=== PATIENT | male | born 1930 | race Two or more races ===

== ENCOUNTER → 2016-10-02 | Outpatient (CLI) | payer MEDICARE | LOC: RAD 07:47 | PROVIDERS: ATTEND Internal Medicine Gastroenterology | DX: R11.10 Vomiting, unspecified (principal) | CPT/HCPCS: 78264; A9541 ==

== ENCOUNTER 2019-01-08 11:13 | Observation (INO) | payer MEDICARE ==
[2019-01-08] MEDS ORDERED: ONDANSETRON HCL INJ/PF 4 MG/2 ML SDV IV ONE (11:26)
[2019-01-08] MEDS ORDERED: NORMAL SALINE 1000 ML 1,000 ML IV ONE (11:26)
--- NOTE | 2019-01-08 11:26 | ER Document Report ---
ED Medical Screen (RME) - General Chief Complaint: Abdominal Pain Stated Complaint: ABDOMINAL PAIN Time Seen by Provider: 01/08/19 11:24 Primary Care Provider: YULI SY MD [Primary Care Provider] - Follow up as needed Notes: 88-year-old male presented to ED for complaint of nausea vomiting and severe abdominal pain. states she has been vomiting all night. He states he has had no stool in at least 3 to 4 days. Patient is alert oriented respirations regular and unlabored he is throwing up in the emergency room I have greeted and performed a rapid initial assessment of this patient. A comprehensive ED assessment and evaluation of the patient, analysis of test results and completion of medical decision making process will be conducted by an additional ED providers. Dictation of this chart was performed using voice recognition software; therefore, there may be some unintended grammatical errors. TRAVEL OUTSIDE OF THE [place] IN LAST 30 DAYS: No - Related Data Allergies/Adverse Reactions: No Known Allergies Allergy (Verified 01/08/19 11:16) Physical Exam - Vital signs Vitals: Temp Pulse Resp BP Pulse Ox 97.6 F 95 16 174/89 H 97 01/08/19 11:19 01/08/19 11:19 01/08/19 11:19 01/08/19 11:19 01/08/19 11:19 Course - Vital Signs Vital signs: Temp Pulse Resp BP Pulse Ox 97.6 F 95 16 174/89 H 97 01/08/19 11:19 01/08/19 11:19 01/08/19 11:19 01/08/19 11:19 01/08/19 11:19 Doctor's Discharge - Discharge Referrals: YULI SY MD [Primary Care Provider] - Follow up as needed
[2019-01-08 12:11] LABS: ABSOLUTE LYMPHOCYTES (AUTO) 0.9 10^3/uL (0.5-4.7); ABSOLUTE MONOCYTES (AUTO) 0.5 10^3/uL (0.1-1.4); ABSOLUTE NEUT (AUTO) 4.7 10^3/uL (1.7-8.2); BASOPHILS % (AUTO) 0.5 % (0-2); EOSINOPHILS % (AUTO) 0.2 % (0-6); HEMATOCRIT 46.8 % (37.9-51.0); HEMOGLOBIN 15.4 g/dL (13.5-17.0); LYMPHOCYTES % (AUTO) 15.3 % (13-45); MEAN CORPUSCULAR HEMOGLOBIN 26.4 pg (27.0-33.4); MEAN CORPUSCULAR HGB CONC 32.8 g/dL (32.0-36.0); MEAN CORPUSCULAR VOLUME 81 fl (80-97); MONOCYTES % (AUTO) 7.7 % (3-13); PLATELET COUNT 201 10^3/uL (150-450); RED BLOOD COUNT 5.81 10^6/uL (4.35-5.55); RED CELL DISTRIBUTION WIDTH 14.4 % (11.5-14.0); SEGMENTED NEUTROPHILS % (AUTO) 76.3 % (42-78); TOTAL CELLS COUNTED % (AUTO) 100 %; WHITE BLOOD COUNT 6.1 10^3/uL (4.0-10.5)
[2019-01-08 12:18] LABS: ALANINE AMINOTRANSFERASE 21 U/L (21-72); ALBUMIN 4.4 g/dL (3.5-5.0); ALKALINE PHOSPHATASE 79 U/L (38-126); ANION GAP 12 (5-19); ASPARTATE AMINO TRANSFERASE 18 U/L (17-59); BILIRUBIN,DIRECT 0.4 mg/dL (0.0-0.4); BLOOD UREA NITROGEN 13 mg/dL (7-20); CALCIUM 9.8 mg/dL (8.4-10.2); CARBON DIOXIDE 30 mmol/L (22-30); CHLORIDE 103 mmol/L (98-107); GLUCOSE 117 mg/dL (75-110); LIPASE 33.6 U/L (23-300); POTASSIUM 4.4 mmol/L (3.6-5.0); SODIUM 144.5 mmol/L (137-145); TOTAL PROTEIN 7.7 g/dL (6.3-8.2)
--- NOTE | 2019-01-08 12:30 | RADIOLOGY REPORT (SQ) ---
EXAM DESCRIPTION: ACUTE ABDOMEN SERIES COMPLETED DATE/TIME: 01/08/2019 12:13 pm REASON FOR STUDY: Severe abdominal pain nausea vomiting no stool COMPARISON: None. NUMBER OF VIEWS: Three views. TECHNIQUE: Frontal chest, supine abdomen and uprightabdomen radiographic images acquired. LIMITATIONS: None. FINDINGS: CHEST: Normal heart size. The pulmonary vasculature is normal. Streaky densities at lung bases could represent discoid atelectasis. FREE AIR: No pneumoperitoneum. BOWEL GAS PATTERN: Nonspecific bowel-gas pattern with scattered gas throughout the colon to the rectu m. Scattered small bowel gas. CALCIFICATIONS: Cholelithiasis. HARDWARE: None in the abdomen. SOFT TISSUES: No gross mass or suggestion of organomegaly. BONES: Lumbar spondylosis. IMPRESSION: Bibasilar discoid atelectasis. Cholelithiasis. Nonspecific bowel-gas pattern. TECHNICAL DOCUMENTATION: JOB ID: [id number] [id number] 2010 [employer]- All Rights Reserved Reading location - IP/workstation name: [email or web address]
[2019-01-08] MEDS ORDERED: METOCLOPRAMIDE HCL INJ/PF 10 MG/2 ML SDV IV ONE (13:22)
[2019-01-08] MEDS ORDERED: DIPHENHYDRAMINE HCL 50 MG/ML VIAL IV ONE (13:22)
[2019-01-08] MEDS ORDERED: MORPHINE SULFATE 10 MG/ML INJ IV ONE ×2 (14:10→15:23)
--- NOTE | 2019-01-08 14:13 | ER Document Report ---
Addendum entered and electronically signed by TIARRA BANKS NP 01/08/19 20:35: Course - Re-evaluation Re-evalutation: 01/08/19 20:34 Patient with EKG which was read by Dr. Vega. States that it looks like some left ventricular hypertrophy with some nonspecific ST changes but no STEMI. States that his official read will be in the computer in about an hour and a half. - Vital Signs Vital signs: Temp Pulse Resp BP Pulse Ox 98.1 F 94 16 173/97 H 99 01/08/19 16:45 01/08/19 16:45 01/08/19 16:45 01/08/19 16:45 01/08/19 16:45 - Laboratory Result Diagrams: 01/08/19 11:46 01/08/19 11:46 Laboratory results interpreted by me: 01/08/19 01/08/19 01/08/19 11:46 11:46 13:40 RBC 5.81 H MCH 26.4 L RDW 14.4 H Est GFR (Non-Af Amer) 59 L Glucose 117 H Urine Blood SMALL H Urine Urobilinogen 2.0 H Original Note: ED GI/ - General Chief Complaint: Abdominal Pain Stated Complaint: ABDOMINAL PAIN Time Seen by Provider: 01/08/19 11:24 Primary Care Provider: YULI SY MD [NO LOCAL MD] - Follow up as needed Mode of Arrival: Ambulatory Information source: Patient TRAVEL OUTSIDE OF THE [place] IN LAST 30 DAYS: No - HPI Patient complains to provider of: Abdominal pain Notes: 01/08/19 14:11 Patient here with complaints of abdominal pain with nausea vomiting. Pain is been present for the last 3 days but got much worse last night. Pain is in the upper abdomen as well as his back. Nothing seems to make it better or worse. He has had nausea and vomiting with this as well. No diarrhea. He denies fever. He denies dysuria or hematuria. No chest pain or shortness of breath. No rash. Pain is constant, 4 out of 5, nothing makes it better or worse. No prior abdominal surgeries. No testicular pain or swelling. No penile discharge. No numbness, tingling, weakness. Patient denies any other specific complaints at this time. - Related Data Allergies/Adverse Reactions: No Known Allergies Allergy (Verified 01/08/19 11:16) Past Medical History - Social History Smoking Status: Former Smoker Chew tobacco use (# tins/day): No Frequency of alcohol use: None Drug Abuse: None Family History: Reviewed & Not Pertinent Patient has suicidal ideation: No Patient has homicidal ideation: No Renal/ Medical History: Denies: Hx Peritoneal Dialysis Review of Systems - Review of Systems -: Yes All other systems reviewed and negative Physical Exam - Vital signs Vitals: Temp Pulse Resp BP Pulse Ox 97.6 F 95 16 174/89 H 97 01/08/19 11:19 01/08/19 11:19 01/08/19 11:19 01/08/19 11:19 01/08/19 11:19 - Notes Notes: GENERAL: alert, cooperative, nontoxic, no distress. HEAD: normocephalic, atraumatic EYES: conjunctiva pink without discharge, no external redness or swelling. EARS: no external swelling, no external redness NOSE: atraumatic, no external swelling MOUTH/THROAT: mucous membranes moist and pink, posterior pharynx without erythema, swelling, exudate. No trismus or drooling. NECK: soft, supple, full range of motion, no meningismus. CHEST: no distress, lungs clear and equal throughout. No wheezing, rales, rhonchi. CARDIAC: regular rate and rhythm, no murmur, normal capillary refill, normal pulses. No peripheral edema noted. ABDOMEN: Soft, tenderness across the right upper and epigastric area as well as the mid abdomen. No pulsatile mass. No right lower quadrant or left lower quadrant tenderness to exam. No rebound tenderness or guarding. BACK: full range of motion, no CVA tenderness. EXTREMITIES: full range of motion of all extremities. No redness, no swelling. NEURO: alert and oriented x 3, no focal deficits, full range of motion of all extremities. PYSCH: appropriate mood, affect. Patient is cooperative. SKIN: pink, warm, dry, no rash. Course - Re-evaluation Re-evalutation: 01/08/19 15:44 Patient resting comfortably at this time. He was having some more pain and had some pain medication ordered and is feeling somewhat better at this time. Ultrasound shows multiple gallstones with a distended gallbladder as well as an infrarenal AAA. I have ordered a CTA of the abdomen and pelvis to rule out dissection. Patient is resting comfortably at this time. Have gone over this with the patient as well as his . We will continue to closely monitor. 01/08/19 17:54 Patient noted to have gallbladder wall thickening with multiple stones and a possible stone in the gallbladder neck. Noted to have 3.3 cm infrarenal abdomi nal aortic aneurysm with no dissection. I discussed the case with Dr. Soto, he will come to the emergency department to evaluate the patient. 01/08/19 19:43 Patient seen and evaluated by Dr. Hurtado. Patient will be admitted to the hospital for acute cholecystitis. Patient family are aware of this plan and agreeable. Patient is also noted to have an incidental infrarenal abdominal aortic aneurysm with no signs of dissection. Remainder of his labs are unremarkable. - Vital Signs Vital signs: Temp Pulse Resp BP Pulse Ox 98.1 F 94 16 173/97 H 99 01/08/19 16:45 01/08/19 16:45 01/08/19 16:45 01/08/19 16:45 01/08/19 16:45 - Laboratory Result Diagrams: 01/08/19 11:46 01/08/19 11:46 Laboratory results interpreted by me: 01/08/19 01/08/19 01/08/19 11:46 11:46 13:40 RBC 5.81 H MCH 26.4 L RDW 14.4 H Est GFR (Non-Af Amer) 59 L Glucose 117 H Urine Blood SMALL H Urine Urobilinogen 2.0 H - Diagnostic Test Radiology reviewed: Image reviewed, Reports reviewed - Acute abdominal series shows atelectasis in the bibasilar area with gallstones and a nonspecific bowel gas pattern. Discharge - Discharge Clinical Impression: AAA (abdominal aortic aneurysm) without rupture Cholelithiasis and cholecystitis without obstruction Qualifiers: Cholelithiasis location: gallbladder Cholecystitis acuity: acute Qualified Code(s): K80.00 - Calculus of gallbladder with acute cholecystitis without obstruction Condition: Stable Disposition: ADMITTED INPATIENT Admitting Provider: Surgicalist Unit Admitted: Surgical Floor Referrals: YULI SY MD [NO LOCAL MD] - Follow up as needed
[2019-01-08 15:12] LABS: APPEARANCE,URINE CLEAR; BILIRUBIN,URINE NEGATIVE (NEGATIVE); COLOR,URINE STRAW; GLUCOSE, URINE NEGATIVE (NEGATIVE); KETONES,URINE NEGATIVE (NEGATIVE); LEUKOCYTE ESTERASE,URINE NEGATIVE (NEGATIVE); NITRITE,URINE NEGATIVE (NEGATIVE); PROTEIN,URINE NEGATIVE (NEGATIVE); URINE SPECIFIC GRAVITY 1.009
--- NOTE | 2019-01-08 15:17 | RADIOLOGY REPORT (SQ) ---
EXAM DESCRIPTION: U/S ABDOMEN LIMITED W/O DOP COMPLETED DATE/TIME: 01/08/2019 2:57 pm REASON FOR STUDY: RUQ PAIN, ALSO R/O AAA COMPARISON: None. TECHNIQUE: Dynamic and static grayscale images acquired of the abdomen and recorded on PACS. Additio nal selected color Doppler and spectral images recorded. LIMITATIONS: None. FINDINGS: PANCREAS: Obscured. LIVER: No masses. Increased echogenicity. LIVER VASCULATURE: Normal directional flow of the main portal vein and hepatic veins. GALLBLADDER: Distended gallbladder measuring greater than 12 cm. Small mobile gallstones in the gall bladder. Normal wall thickness. No pericholecystic fluid. ULTRASOUND-DETECTED LOPEZ'S SIGN: Negative. INTRAHEPATIC DUCTS AND COMMON DUCT: CBD and intrahepatic ducts normal caliber. No filling defects. INFERIOR VENA CAVA: Normal flow. AORTA: Maximum caliber of the inferior abdominal aorta 3.3 x 2.3 cm. RIGHT KIDNEY: Normal size. Normal echogenicity. No solid or suspicious masses. No hydronephrosis. No calcifications. PERITONEAL AND RIGHT PLEURAL SPACE: No ascites or effusions. OTHER: No other significant findings. IMPRESSION: 1. Very distended gallbladder with small mobile gallstones. No gallbladder wall thicke fern. No pericholecystic fluid. No biliary ductal dilation. Negative sonographic Lopez's sign. H CRISTHIAN may be used to further evaluate for patency of the cystic duct if cholecystitis is suspected. 2. Aneurysm of the infrarenal abdominal aorta measuring 3.3 x 2.3 cm. 3. Hepatic steatosis. TECHNICAL DOCUMENTATION: JOB ID: [id number] [employer]- All Rights Reserved Reading location - IP/workstation name: [email or web address]
--- NOTE | 2019-01-08 17:34 | RADIOLOGY REPORT (SQ) ---
EXAM DESCRIPTION: CTA ABDOMEN/PELVIS W WO COMPLETED DATE/TIME: 01/08/2019 4:48 pm REASON FOR STUDY: AAA COMPARISON: None. TECHNIQUE: CT scan of the abdominal aorta extending to the iliac bifurcation performed with and with out intravenous contrast using helical scanning technique with dynamic intravenous contrast injection . Images reviewed with lung, soft tissue, and bone windows. Reconstructed coronal and sagittal MPR im ages reviewed. All images stored on PACS. Advanced 3D imaging as volume rendering, MIPS, SSD performed? yes All CT scanners at this facility use dose modulation, iterative reconstruction, and/or weight based d osing when appropriate to reduce radiation dose to as low as reasonably achievable (ALARA). [facility]: Dose Right [facility]: CareDose [facility]: Dose Right [facility]: Teradose 4D [facility]: Anzode CONTRAST TYPE AND DOSE: I Omnipaque 350. 99 mL. RENAL FUNCTION: Creatinine: 1.1 LIMITATIONS: None. FINDINGS: NON-CONTRASTED IMAGING: Nonobstructive calculus upper pole love right kidney. Nonobstruct dagmar calculi lower pole left kidney. . Cholelithiasis. Possible stone in gallbladder neck. POST-CONTRAST IMAGING: AORTA AND VESSELS: Aneurysmal dilatation distal abdominal aorta with mural thrombus measuring 3.3 cm in AP diameter by 3.3 cm in transverse diameter. No dissection. Renal arteries, SMA, celiac without stenosis. LUNG BASES: Dependent atelectasis in lung bases. LIVER: There are simple hepatic cysts of the liver noted. SPLEEN: Normal size. No focal lesions. PANCREAS: No abnormality seen. GALLBLADDER: Cholelithiasis. Findings suggestive a stone at the neck of gallbladder or cystic duct. The gallbladder is distended measuring 4 cm in transverse diameter x15.7 cm in length. Thickening of the gallbladder wall is noted measuring 1.1 cm in thickness. ADRENAL GLANDS: No abnormality seen. RIGHT KIDNEY AND URETER: There is evidence of multiple cortical cysts of the right kidney. LEFT KIDNEY AND URETER: Multiple cortical and parapelvic cysts of the left kidney. RETROPERITONEUM: Aneurysmal dilatation of the infrarenal abdominal aorta measuring 3.3 cm in AP diame terx 3 cm in transverse diameter. BOWEL AND PERITONEAL CAVITY: No masses or inflammatory changes. No free fluid or peritoneal masses. APPENDIX: Normal. ABDOMINAL WALL: No masses. No hernias. BONY STRUCTURES: Lumbar spondylosis. 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 3-D IMAGING: Confirms the above findings. OTHER: Changes consistent with previous hernia repair right lower abdomen. Ng. IMPRESSION: 1. Evidence of a markedly distended gallbladder with thickened wall. Cholelithiasis. Possible stone in gallbladder neck. 2. Evidence of aneurysmal dilatation of the infrarenal abdomina l aorta above its bifurcation measuring 3.3 cm in AP diameterx3 cm in transverse diameter with mural thrombus. Marked tortuosity of the abdominal aorta noted. TECHNICAL DOCUMENTATION: JOB ID: [id number] SC-69 Quality ID # [id number]: Final reports with documentation of one or more dose reduction techniques (e.g., Au tomated exposure control, adjustment of the mA and/or kV according to patient size, use of iterative reconstruction technique) 2010 [employer]- All Rights Reserved Reading location - IP/workstation name: [email or web address]
--- NOTE | 2019-01-08 19:55 | PDOC H&P ---
History of Present Illness Admission Date/PCP: KSENIA ANDERSON MD Patient complains of: abdominal pains History of Present Illness: VIC DE LA ROSA is a 88 year old male co RUQ pains since 7 pm last night asociated with nausea. No fever/chills/diarrhea/constipation.US shoud gallstones with acute cholecystitis. Past Surgical History Past Surgical History: Reports: Other - ypper palate surgery for Ca about 30 years ago Social History Smoking Status: Former Smoker Family History Family History: Reviewed & Not Pertinent Parental Family History Reviewed: Yes Children Family History Reviewed: No Sibling(s) Family History Reviewed.: No Medication/Allergy Allergies/Adverse Reactions: No Known Allergies Allergy (Verified 01/08/19 11:16) Review of Systems Constitutional: PRESENT: as per HPI Physical Exam Vital Signs: Temp Pulse Resp BP Pulse Ox 98.1 F 94 16 173/97 H 99 01/08/19 16:45 01/08/19 16:45 01/08/19 16:45 01/08/19 16:45 01/08/19 16:45 Intake & Output 01/07/19 01/08/19 01/09/19 06:59 06:59 06:59 Intake Total 1000 Balance 1000 Weight 73.8 kg General appearance: PRESENT: mild distress Head exam: PRESENT: atraumatic Eye exam: PRESENT: conjunctiva pink Neck exam: PRESENT: full ROM Cardiovascular exam: PRESENT: RRR Pulses: PRESENT: normal radial pulses Vascular exam: PRESENT: normal capillary refill GI/Abdominal exam: PRESENT: soft, tenderness - RUQ Rectal exam: PRESENT: deferred Extremities exam: PRESENT: full ROM Musculoskeletal exam: PRESENT: ambulatory Neurological exam: PRESENT: alert, oriented to person, oriented to place, oriented to time, oriented to situation Psychiatric exam: PRESENT: appropriate affect Skin exam: PRESENT: normal color, warm Results Laboratory Results: 01/08/19 11:46 01/08/19 11:46 01/08/19 01/08/19 01/08/19 11:46 11:46 13:40 WBC 6.1 RBC 5.81 H Hgb 15.4 Hct 46.8 MCV 81 MCH 26.4 L MCHC 32.8 RDW 14.4 H Plt Count 201 Seg Neutrophils % 76.3 Lymphocytes % 15.3 Monocytes % 7.7 Eosinophils % 0.2 Basophils % 0.5 Absolute Neutrophils 4.7 Absolute Lymphocytes 0.9 Absolute Monocytes 0.5 Absolute Eosinophils 0.0 Absolute Basophils 0.0 Sodium 144.5 Potassium 4.4 Chloride 103 Carbon Dioxide 30 Anion Gap 12 BUN 13 Creatinine 1.17 Est GFR ( Amer) > 60 Est GFR (Non-Af Amer) 59 L Glucose 117 H Calcium 9.8 Total Bilirubin 1.0 AST 18 ALT 21 Alkaline Phosphatase 79 Total Protein 7.7 Albumin 4.4 Lipase 33.6 Urine Color STRAW Urine Appearance CLEAR Urine pH 8.0 Ur Specific [place] 1.009 Urine Protein NEGATIVE Urine Glucose (UA) NEGATIVE Urine Ketones NEGATIVE Urine Blood SMALL H Urine Nitrite NEGATIVE Ur Leukocyte Esterase NEGATIVE Urine WBC (Auto) 0 Urine RBC (Auto) 5 Impressions: Acute Abdomen Series 01/08/19 11:24 IMPRESSION: Bibasilar discoid atelectasis. Cholelithiasis. Nonspecific bowel- gas pattern. Abdomen Ultrasound 01/08/19 14:09 IMPRESSION: 1. Very distended gallbladder with small mobile gallstones. No gallbladder wall thickening. No pericholecystic fluid. No biliary ductal dilation. Negative sonographic Lopez's sign. HIDA may be used to further evaluate for patency of the cystic duct if cholecystitis is suspected. 2. Aneurysm of the infrarenal abdominal aorta measuring 3.3 x 2.3 cm. 3. Hepatic steatosis. Abdomen/Pelvis CTA 01/08/19 15:38 IMPRESSION: 1. Evidence of a markedly distended gallbladder with thickened wall. Cholelithiasis. Possible stone in gallbladder neck. 2. Evidence of aneurysmal dilatation of the infrarenal abdominal aorta above its bifurcation measuring 3.3 cm in AP diameterx3 cm in transverse diameter with mural thrombus. Marked tortuosity of the abdominal aorta noted. Assessment & Plan - Diagnosis (1) AAA (abdominal aortic aneurysm) without rupture Is this a current diagnosis for this admission?: Yes (2) Cholelithiasis and cholecystitis without obstruction Qualifiers: Cholelithiasis location: gallbladder Cholecystitis acuity: acute Qualified Code(s): K80.00 - Calculus of gallbladder with acute cholecystitis without obstruction Is this a current diagnosis for this admission?: Yes - Time Time Spent: 30 to 50 Minutes - Inpatient Certification Medical Necessity: Need For IV Fluids, Need for Pain Control, Need for IV Antibiotics, Need for Surgery - Plan Summary Plan Summary: NPO IV antibiotics Medical clearance for OR For lap cholecystectomy in am
[2019-01-08] MEDS ORDERED: AMPICILLIN SOD/SULBACTAM 3 GM VIAL IV ONE (20:04)
[2019-01-08] MEDS: AMPICILLIN SOD/SULBACTAM 3 GM VIAL IV SCH (20:21)
[2019-01-08] MEDS: ONDANSETRON HCL INJ/PF 4 MG/2 ML SDV IV PRN (20:27)
[2019-01-08] MEDS: MORPHINE SULFATE 10 MG/ML INJ IV PRN (20:27)
--- NOTE | 2019-01-08 23:05 | EKG REPORT ---
SEVERITY:- ABNORMAL ECG - SINUS RHYTHM LEFT BUNDLE BRANCH BLOCK : Confirmed by: Yevgeniy Vega 08-Jan-2019 23:05:32
--- NOTE | 2019-01-08 23:06 | EKG REPORT ---
SEVERITY:- ABNORMAL ECG - SINUS RHYTHM PAIRED VENTRICULAR PREMATURE COMPLEXES NONSPECIFIC INTRAVENTRICULAR CONDUCTION DELAY LEFT VENTRICULAR HYPERTROPHY : Confirmed by: Yevgeniy Vega 08-Jan-2019 23:06:05
[2019-01-08 23:50] LABS: CREATINE KINASE MB 1.42 ng/mL (<4.55); TROPONIN I 0.054 ng/mL
[2019-01-08 23:50] LABS: CREATINE KINASE MB 1.92 ng/mL (<4.55); TROPONIN I 0.051 ng/mL
[2019-01-09] MEDS: AMLODIPINE BESYLATE 5 MG TABLET PO SCH ×2 (00:04→11:52)
[2019-01-09] MEDS: ENALAPRIL MALEATE 5 MG TABLET PO SCH ×2 (00:05→11:52)
[2019-01-09] MEDS ORDERED: AMPICILLIN SOD/SULBACTAM 3 GM VIAL ONE (00:07)
--- NOTE | 2019-01-09 01:44 | PDOC CONSULTATION ---
Consultation Consult Date: 01/08/19 Attending physician:: GA COELLO Provider Consulted: ZARINA SANTIZO Consult reason:: Preop History of Present Illness Admission Date/PCP: 01/08/19 20:06 KSENIA ANDERSON MD Patient complains of: Abdominal pain History of Present Illness: VIC DE LA ROSA is a 88 year old male with a past medical history of hypertension without treatment presents with 24 hours of abdominal pain associated with nausea prompting evaluation emergency room which reveals cholelithiasis with cholecystitis without obstruction, small infrarenal abdominal aortic aneurysm, uncontrolled hypertension, abnormal EKG with LVH by voltage, paired PVCs and nonspecific ST elevation. Patient denies daily activities or walking limited by shortness of breath or chest pain denies coronary artery disease but admits to long-standing hyperten morgan without treatment. Past Medical History Cardiac Medical History: Reports: Hypertension Past Surgical History Past Surgical History: Reports: Other - ypper palate surgery for Ca about 30 years ago Social History Information Source: Patient, Relative, [facility] Records Lives with: Spouse/Significant other Smoking Status: Former Smoker Frequency of Alcohol Use: None Drugs: None - Advance Directive Resuscitation Status: Full Code Family History Family History: Hypertension Parental Family History Reviewed: Yes Children Family History Reviewed: Yes Sibling(s) Family History Reviewed.: Yes Medication/Allergy Allergies/Adverse Reactions: ciprofloxacin Allergy (Verified 01/08/19 20:22) Review of Systems Constitutional: ABSENT: chills, fever(s), headache(s), weight gain, weight loss Eyes: ABSENT: visual disturbances Ears: ABSENT: hearing changes Cardiovascular: ABSENT: chest pain, dyspnea on exertion, edema, orthropnea, palpitations Respiratory: ABSENT: cough, hemoptysis Gastrointestinal: ABSENT: abdominal pain, constipation, diarrhea, hematemesis, hematochezia, nausea, vomiting Genitourinary: ABSENT: dysuria, hematuria Musculoskeletal: ABSENT: joint swelling Integumentary: ABSENT: rash, wounds Neurological: ABSENT: abnormal gait, abnormal speech, confusion, dizziness, focal weakness, syncope Psychiatric: ABSENT: anxiety, depression, homidical ideation, suicidal ideation Endocrine: ABSENT: cold intolerance, heat intolerance, polydipsia, polyuria Hematologic/Lymphatic: ABSENT: easy bleeding, easy bruising Physical Exam Vital Signs: Temp Pulse Resp BP Pulse Ox 98.1 F 94 16 173/97 H 99 01/08/19 16:45 01/08/19 16:45 01/08/19 16:45 01/08/19 16:45 01/08/19 16:45 Intake & Output 01/07/19 01/08/19 01/09/19 11:59 11:59 11:59 Intake Total 1000 Balance 1000 Weight 73.8 kg General appearance: PRESENT: no acute distress, well-developed, well-nourished Head exam: PRESENT: atraumatic, normocephalic Eye exam: PRESENT: conjunctiva pink, EOMI, PERRLA. ABSENT: scleral icterus Ear exam: PRESENT: normal external ear exam Mouth exam: PRESENT: moist, tongue midline Neck exam: ABSENT: carotid bruit, JVD, lymphadenopathy, thyromegaly Respiratory exam: PRESENT: clear to auscultation mateo. ABSENT: rales, rhonchi, wheezes Cardiovascular exam: PRESENT: RRR. ABSENT: diastolic murmur, rubs, systolic murmur Pulses: PRESENT: normal dorsalis pedis pul Vascular exam: PRESENT: normal capillary refill GI/Abdominal exam: PRESENT: hypoactive bowel sounds, normal bowel sounds, soft, tenderness - Left upper quadrant without guarding. ABSENT: distended, guarding, mass, organolmegaly, rebound Rectal exam: PRESENT: deferred Extremities exam: PRESENT: full ROM. ABSENT: calf tenderness, clubbing, pedal edema Neurological exam: PRESENT: alert, awake, oriented to person, oriented to place, oriented to time, oriented to situation, CN II-XII grossly intact. ABSENT: motor sensory deficit Psychiatric exam: PRESENT: appropriate affect, normal mood. ABSENT: homicidal ideation, suicidal ideation Skin exam: PRESENT: dry, intact, warm. ABSENT: cyanosis, rash Results Laboratory Results: 01/08/19 11:46 01/08/19 11:46 01/08/19 01/08/19 01/08/19 11:46 11:46 13:40 WBC 6.1 RBC 5.81 H Hgb 15.4 Hct 46.8 MCV 81 MCH 26.4 L MCHC 32.8 RDW 14.4 H Plt Count 201 Seg Neutrophils % 76.3 Lymphocytes % 15.3 Monocytes % 7.7 Eosinophils % 0.2 Basophils % 0.5 Absolute Neutrophils 4.7 Absolute Lymphocytes 0.9 Absolute Monocytes 0.5 Absolute Eosinophils 0.0 Absolute Basophils 0.0 Sodium 144.5 Potassium 4.4 Chloride 103 Carbon Dioxide 30 Anion Gap 12 BUN 13 Creatinine 1.17 Est GFR ( Amer) > 60 Est GFR (Non-Af Amer) 59 L Glucose 117 H Calcium 9.8 Total Bilirubin 1.0 AST 18 ALT 21 Alkaline Phosphatase 79 Total Protein 7.7 Albumin 4.4 Lipase 33.6 Urine Color STRAW Urine Appearance CLEAR Urine pH 8.0 Ur Specific [place] 1.009 Urine Protein NEGATIVE Urine Glucose (UA) NEGATIVE Urine Ketones NEGATIVE Urine Blood SMALL H Urine Nitrite NEGATIVE Ur Leukocyte Esterase NEGATIVE Urine WBC (Auto) 0 Urine RBC (Auto) 5 Impressions: Acute Abdomen Series 01/08/19 11:24 IMPRESSION: Bibasilar discoid atelectasis. Cholelithiasis. Nonspecific bowel- gas pattern. Abdomen Ultrasound 01/08/19 14:09 IMPRESSION: 1. Very distended gallbladder with small mobile gallstones. No gallbladder wall thickening. No pericholecystic fluid. No biliary ductal dilation. Negative sonographic Lopez's sign. HIDA may be used to further evaluate for patency of the cystic duct if cholecystitis is suspected. 2. Aneurysm of the infrarenal abdominal aorta measuring 3.3 x 2.3 cm. 3. Hepatic steatosis. Abdomen/Pelvis CTA 01/08/19 15:38 IMPRESSION: 1. Evidence of a markedly distended gallbladder with thickened wall. Cholelithiasis. Possible stone in gallbladder neck. 2. Evidence of aneurysmal dilatation of the infrarenal abdominal aorta above its bifurcation measuring 3.3 cm in AP diameterx3 cm in transverse diameter with mural thrombus. Marked tortuosity of the abdominal aorta noted. Assessment and Plan - Diagnosis (1) Cholelithiasis and cholecystitis without obstruction Qualifiers: Cholelithiasis location: gallbladder Cholecystitis acuity: acute Qualified Code(s): K80.00 - Calculus of gallbladder with acute cholecystitis without obstruction Is this a current diagnosis for this admission?: Yes Plan: Patient maintains a high functional status without limitations, no history of recent cardiac event, low intrinsic additional cardiac risk of cholecystectomy by laparoscopy. Recommend to proceed to surgery. (2) Abnormal EKG Is this a current diagnosis for this admission?: Yes Plan: Suggestive of left ventricular hypertrophy with repolarization abnormality how ever given his abdominal, back pain with nausea and vomiting will evaluate troponin x2 for the possibility of both underlying acute cholecystitis in addition to acute coronary syndrome. Evaluation of cardiac enzymes remain unremarkable for additional risk subsequent recommendation to proceed to shea avila. (3) Hypertension Is this a current diagnosis for this admission?: Yes Plan: Norvasc ordered (4) AAA (abdominal aortic aneurysm) without rupture Is this a current diagnosis for this admission?: Yes Plan: Outpatient follow-up with vascular surgery. - Time Time Spent with patient: 35 or more minutes - Inpatient Certification Medical Necessity: Need Close Monitoring Due to Risk of Patient Decompensation
[2019-01-09] MEDS: AMPICILLIN SOD/SULBACTAM 3 GM VIAL IV SCH ×2 (02:30→11:43)
[2019-01-09 05:37] LABS: CREATINE KINASE MB 1.17 ng/mL (<4.55); TROPONIN I 0.046 ng/mL
[2019-01-09] MEDS ORDERED: BUPIVACAINE HCL 0.5%-EPI 1:200000 INJ/PF 30 ML VIAL ONE (07:43)
[2019-01-09] MEDS ORDERED: BUPIVACAINE HCL 0.25 % INJ/PF (2.5 MG/1 ML) 30 ML VIAL ONE (07:43)
[2019-01-09] MEDS ORDERED: FENTANYL CITRATE INJ/PF 250 MCG/5 ML AMPULE ONE (08:37)
[2019-01-09] MEDS ORDERED: PROPOFOL INJ 200 MG/20 ML VIAL IV ONE (08:38)
[2019-01-09] MEDS ORDERED: HYDROMORPHONE HCL INJ/PF 2 MG/ML AMPULE ONE (08:38)
[2019-01-09] MEDS ORDERED: MIDAZOLAM 2 MG/2 ML INJ ONE (08:38)
[2019-01-09] MEDS: AMPICILLIN SODIUM/SULBACTAM NA 3 GM in NORMAL SALINE 100 ML IV SCH ×3 (09:10→21:25)
[2019-01-09] MEDS ORDERED: HYDRALAZINE HCL INJ/PF 20 MG/1 ML SDV ONE ×2 (09:46→09:47)
[2019-01-09] MEDS ORDERED: METOPROLOL TARTRATE PF/INJ 5 MG/5 ML SDV IV ONE (09:46)
[2019-01-09] MEDS ORDERED: DIPHENHYDRAMINE HCL 50 MG/ML VIAL IV PRN (09:54)
[2019-01-09] MEDS ORDERED: MEPERIDINE HCL/PF INJ 25 MG/1 ML DISP.SYRIN IV PRN (09:54)
[2019-01-09] MEDS ORDERED: FENTANYL CITRATE INJ/PF 100 MCG/2 ML AMPUL IV PRN ×2 (09:54)
[2019-01-09] MEDS ORDERED: PROMETHAZINE HCL INJ 25 MG/1 ML VIAL IV PRN (09:54)
--- NOTE | 2019-01-09 11:09 | OPERATIVE REPORT E ---
Operative Report NAME: VIC DE LA ROSA : 1930 AGE: 88Y DATE OF SURGERY: 01/09/2019 ROOM: 535 PREOPERATIVE DIAGNOSIS: 1. ACUTE CHOLECYSTITIS. 2. CHOLELITHIASIS. POSTOPERATIVE DIAGNOSIS: 1. ACUTE CHOLECYSTITIS. 2. CHOLELITHIASIS. OPERATION: Laparoscopic cholecystectomy. SURGEON: GA COELLO M.D. ANESTHESIA: General. INDICATION: This is an 88-year-old male complaining of severe right upper quadrant pains just prior to going to the ED last night. He was noted to have stones in the gallbladder and thickened gallbladder wall on ultrasound and a CAT scan. His white count was slightly elevated but his LFTs were all normal. He was then given IV antibiotics. DESCRIPTION OF PROCEDURE: After adequate general anesthesia the patient was placed in the supine position and the abdomen prepped and draped in the usual sterile fashion. Appropriate timeout was then called. Next an infraumbilical incision made and the fascia grasped and divided and Tomas trocar inserted through the fascia to the abdominal cavity. CO2 insufflated to a pressure of 15 mmHg. Three other trocars were placed. A 12 mm in the subxiphoid and two 5 mm in the right upper quadrant under direct vision. Next, the gallbladder was noted to be markedly dilated and tense. With the use of the long needle, the gallbladder was then aspirated of at least 60 mL of light yellow fluid indicating high drops of the gallbladder. Gallbladder wall was also thickened with some edema surrounding. Next, gallbladder tip was then grasped and pulled over the liver. The infundibulum was then grasped and the cystic duct dissected. Cystic duct noted to be borderline dilated. This was subsequently grasped, clipped 3 times in the proximal side and a single clip close to the gallbladder and divided within the distal and proximal clip. Gallbladder was then dissected off. Cystic artery appears to be with several branches and then were clipped proximally and divided with the harmonic yves. The gallbladder was then dissected off of the liver bed with the use of harmonic yves. The gallbladder was completely removed and placed in an EndoBag and pulled out through the umbilical port after extending the fascial defect to at least another 5 mm to allow removal of the gallbladder. The gallbladder was then removed and noted and palpated through the bag. Noted to be a thickened wall with at least 1 stone roughly measuring about almost 2 cm in diameter . Next, the Tomas trocar was then put back and the liver bed inspected. There was no active bleeding noted but a small bleeder on the upper part of the liver bed was further cauterized to control any bleeding. Surgicel was then placed at this area for better hemostasis. All of the trocars were then removed and CO2 allowed to come out of the trocar sites. The infraumbilical fascial defect was then closed with a [id number] suture using 0-Vicryl and the 2 stay sutures tied together for better closure. The fascia was then injected with Marcaine. Next, all of the skin incisions were then closed with running subcuticular 4-0 Vicryl undyed. Steri-Strips were then placed over the operative sites. Needle, instrument, and sponge count were all correct. Estimated blood loss was about no more than 10 mL. Patient brought to recovery room in satisfactory condition and extubated. DICTATING PHYSICIAN: GA COELLO M.D. [id number] PHY#: [id number] ID: [id number] JOB#: [id number] ACCT: [id number] cc:GA COELLO M.D. >
[2019-01-09] MEDS: MORPHINE SULFATE 10 MG/ML INJ IV PRN ×2 (11:51→16:57)
[2019-01-09] MEDS: ONDANSETRON HCL INJ/PF 4 MG/2 ML SDV IV PRN (11:52)
[2019-01-09 13:02] LABS: CREATINE KINASE MB 1.25 ng/mL (<4.55); TROPONIN I 0.025 ng/mL
--- NOTE | 2019-01-09 13:45 | PDOC PROGRESS REPORT ---
Subjective Progress Note for:: 01/09/19 Subjective:: VIC DE LA ROSA is a 88 year old male with a past medical history of hypertension without treatment presents with 24 hours of abdominal pain associated with nausea prompting evaluation emergency room which reveals cholelithiasis with cholecystitis. Reason For Visit: AAA WITHOUT RUPTURE Physical Exam Vital Signs: Temp Pulse Resp BP Pulse Ox 98.3 F 90 16 141/77 H 97 01/09/19 12:00 01/09/19 12:00 01/09/19 12:00 01/09/19 12:00 01/09/19 12:00 Intake & Output 01/08/19 01/09/19 01/10/19 06:59 06:59 06:59 Intake Total 1240 2800 Output Total 1395 Balance 1240 1405 Weight 73.8 kg Results Laboratory Results: 01/08/19 11:46 01/08/19 11:46 01/08/19 13:40 Urine Color STRAW Urine Appearance CLEAR Urine pH 8.0 Ur Specific [place] 1.009 Urine Protein NEGATIVE Urine Glucose (UA) NEGATIVE Urine Ketones NEGATIVE Urine Blood SMALL H Urine Nitrite NEGATIVE Ur Leukocyte Esterase NEGATIVE Urine WBC (Auto) 0 Urine RBC (Auto) 5 01/08/19 01/08/19 01/08/19 11:46 11:46 22:58 Creatine Kinase 108 99 CK-MB (CK-2) 1.92 Troponin I 0.051 01/08/19 01/09/19 01/09/19 22:58 04:20 04:20 Creatine Kinase 76 CK-MB (CK-2) 1.42 1.17 Troponin I 0.054 0.046 01/09/19 12:03 Creatine Kinase 91 CK-MB (CK-2) Troponin I Impressions: Acute Abdomen Series 01/08/19 11:24 IMPRESSION: Bibasilar discoid atelectasis. Cholelithiasis. Nonspecific bowel- gas pattern. Abdomen Ultrasound 01/08/19 14:09 IMPRESSION: 1. Very distended gallbladder with small mobile gallstones. No gallbladder wall thickening. No pericholecystic fluid. No biliary ductal dilation. Negative sonographic Lopez's sign. HIDA may be used to further ev aluate for patency of the cystic duct if cholecystitis is suspected. 2. Aneurysm of the infrarenal abdominal aorta measuring 3.3 x 2.3 cm. 3. Hepatic steatosis. Abdomen/Pelvis CTA 01/08/19 15:38 IMPRESSION: 1. Evidence of a markedly distended gallbladder with thickened wall. Cholelithiasis. Possible stone in gallbladder neck. 2. Evidence of aneurysmal dilatation of the infrarenal abdominal aorta above its bifurcation measuring 3.3 cm in AP diameterx3 cm in transverse diameter with mural thrombus. Marked tortuosity of the abdominal aorta noted. Assessment and Plan - Diagnosis (1) Cholelithiasis and acute cholecystitis without obstruction Is this a current diagnosis for this admission?: Yes Plan: Status post laparoscopic cholecystectomy. Patient tolerated the procedure well. (2) Abnormal EKG Is this a current diagnosis for this admission?: Yes Plan: Stable (3) Hypertension Qualifiers: Hypertension type: essential hypertension Qualified Code(s): I10 - Essential (primary) hypertension Is this a current diagnosis for this admission?: Yes Plan: Continue current medication. (4) Abdominal aortic aneurysm (AAA) Qualifiers: Presence of rupture: without rupture Qualified Code(s): I71.4 - Abdominal aortic aneurysm, without rupture Is this a current diagnosis for this admission?: Yes Plan: Patient needs outpatient follow-up with vascular surgeon
[2019-01-09] MEDS: NORMAL SALINE 1000 ML 1,000 ML IV PRN (14:28)
[2019-01-09] MEDS ORDERED: ROCURONIUM BROMIDE INJ 50 MG/5 ML VIAL IV ONE (14:43)
[2019-01-09] MEDS ORDERED: GLYCOPYRROLATE 1 MG/5 ML SYRINGE ONE (14:43)
[2019-01-09] MEDS ORDERED: DEXAMETHASONE SOD PHOSPHATE INJ 4 MG/1 ML VIAL ONE (14:43)
[2019-01-09] MEDS ORDERED: ONDANSETRON HCL INJ/PF 4 MG/2 ML SDV ONE (14:43)
[2019-01-09] MEDS ORDERED: SUCCINYLCHOLINE CHLORIDE INJ 200 MG/10 ML VIAL ONE (14:43)
[2019-01-09] MEDS ORDERED: NEOSTIGMINE METHYLSULFATE 10 MG/10 ML VIAL ONE (14:43)
[2019-01-09] MEDS: OXYCODONE-ACETAMINOPHEN 5-325 MG TABLET PO PRN ×2 (15:19→21:25)
[2019-01-10] MEDS: AMPICILLIN SODIUM/SULBACTAM NA 3 GM in NORMAL SALINE 100 ML IV SCH ×2 (03:50→09:00)
[2019-01-10] MEDS: OXYCODONE-ACETAMINOPHEN 5-325 MG TABLET PO PRN ×2 (04:52→11:15)
[2019-01-10] MEDS: NORMAL SALINE 1000 ML 1,000 ML IV PRN (04:54)
[2019-01-10 06:28] VITALS: BP 125/83
[2019-01-10] MEDS: AMLODIPINE BESYLATE 5 MG TABLET PO SCH (10:42)
[2019-01-10] MEDS: ENALAPRIL MALEATE 5 MG TABLET PO SCH (10:43)
== END 2019-01-10 12:57 | disposition home or self-care (01) ==
LOC: ER 11:13 → EH 20:06 → INTOOBSV 20:06 → 5 21:36
PROVIDERS: ATTEND Surgery
PROC: 0FT44ZZ Resection of Gallbladder, Percutaneous Endoscopic Approach (ICD-10-PCS; principal; 2019-01-09 09:00)
DX: K80.12 Calculus of gallbladder with acute and chronic cholecystitis without obstruction (principal); R94.31 Abnormal electrocardiogram [ECG] [EKG]; I71.4 Abdominal aortic aneurysm, without rupture; I10 Essential (primary) hypertension; K76.0 Fatty (change of) liver, not elsewhere classified; Z87.891 Personal history of nicotine dependence; Z85.89 Personal history of malignant neoplasm of other organs and systems; Z82.49 Family history of ischemic heart disease and other diseases of the circulatory system
CPT/HCPCS: 93005; 96376; 99285; 96361; 96374; 96375; 36415 ×2; 87205; 87070; 82553 ×2; 82550 ×2; 83690; 85025; 87075; 87077; 80053; 81001; 84484 ×2; 87186; 88304 ×2; 74022; 76705; 74174; 93010; 47562; G0378 ×2; J3490 ×4; J1100; J1200; J3010; J0295 ×3; J0360; J2765; J2270 ×2; J2710; A9270 ×6; J1170; J0330; J2405 ×2; J7050 ×2; J7030 ×3; J2704; 790; J2250

== ENCOUNTER 2019-08-25 11:13 | Emergency (ER) | payer MEDICARE ==
[2019-08-25] MEDS ORDERED: ONDANSETRON HCL INJ/PF 4 MG/2 ML SDV IV ONE (11:51)
--- NOTE | 2019-08-25 11:53 | ER Document Report ---
ED Medical Screen (RME) - General Chief Complaint: Vomiting Stated Complaint: VOMITING Time Seen by Provider: 08/25/19 11:50 Primary Care Provider: KSENIA ANDERSON MD [Primary Care Provider] - Follow up as needed Information source: Patient, Relative Notes: Patient presents with nausea vomiting diarrhea and generalized abdominal pain. Patient also complains of left lateral side and left flank pain. Patient has had dizziness and family reports low blood pressure with a systolic in the 90s at home. Family does report cold symptoms for the past 3 months. hx: Hypertension, cholecystectomy I have greeted and performed a rapid initial assessment of this patient. A comprehensive ED assessment and evaluation of the patient, analysis of test results and completion of the medical decision making process will be conducted by additional ED providers. TRAVEL OUTSIDE OF THE [place] IN LAST 30 DAYS: No - Related Data Allergies/Adverse Reactions: ciprofloxacin Allergy (Verified 01/08/19 20:22) Past Medical History - Past Medical History Cardiac Medical History: Reports: Hx Hypertension Renal/ Medical History: Denies: Hx Peritoneal Dialysis Past Surgical History: Reports: Other - ypper palate surgery for Ca about 30 years ago Physical Exam - Vital signs Vitals: Temp Pulse Resp BP Pulse Ox 98.6 F 99 18 116/95 H 97 08/25/19 11:33 08/25/19 11:33 08/25/19 11:33 08/25/19 11:33 08/25/19 11:33 - Abdominal Tenderness: Tender - Generalized abdomen Course - Vital Signs Vital signs: Temp Pulse Resp BP Pulse Ox 98.6 F 99 18 116/95 H 97 08/25/19 11:33 08/25/19 11:33 08/25/19 11:33 08/25/19 11:33 08/25/19 11:33 Doctor's Discharge - Discharge Referrals: KSENIA ANDERSON MD [Primary Care Provider] - Follow up as needed
[2019-08-25 12:34] LABS: ABSOLUTE LYMPHOCYTES (AUTO) 0.5 10^3/uL (0.5-4.7); ABSOLUTE MONOCYTES (AUTO) 0.4 10^3/uL (0.1-1.4); ABSOLUTE NEUT (AUTO) 6.7 10^3/uL (1.7-8.2); BASOPHILS % (AUTO) 0.5 % (0-2); EOSINOPHILS % (AUTO) 0.6 % (0-6); HEMATOCRIT 43.3 % (37.9-51.0); HEMOGLOBIN 14.6 g/dL (13.5-17.0); LYMPHOCYTES % (AUTO) 6.6 % (13-45); MEAN CORPUSCULAR HEMOGLOBIN 27.3 pg (27.0-33.4); MEAN CORPUSCULAR HGB CONC 33.7 g/dL (32.0-36.0); MEAN CORPUSCULAR VOLUME 81 fl (80-97); MONOCYTES % (AUTO) 5.5 % (3-13); PLATELET COUNT 181 10^3/uL (150-450); RED BLOOD COUNT 5.34 10^6/uL (4.35-5.55); RED CELL DISTRIBUTION WIDTH 13.2 % (11.5-14.0); SEGMENTED NEUTROPHILS % (AUTO) 86.8 % (42-78); TOTAL CELLS COUNTED % (AUTO) 100 %; WHITE BLOOD COUNT 7.7 10^3/uL (4.0-10.5)
[2019-08-25 12:57] LABS: ALKALINE PHOSPHATASE 281 U/L (38-126); ANION GAP 10 (5-19); ASPARTATE AMINO TRANSFERASE 542 U/L (17-59); BILIRUBIN,DIRECT 0.4 mg/dL (0.0-0.4); BILIRUBIN,TOTAL 1.5 mg/dL (0.2-1.3); BLOOD UREA NITROGEN 18 mg/dL (7-20); CALCIUM 9.5 mg/dL (8.4-10.2); CARBON DIOXIDE 29 mmol/L (22-30); CHLORIDE 100 mmol/L (98-107); GLUCOSE 107 mg/dL (75-110); POTASSIUM 4.3 mmol/L (3.6-5.0); TOTAL PROTEIN 7.5 g/dL (6.3-8.2)
--- NOTE | 2019-08-25 13:05 | RADIOLOGY REPORT (SQ) ---
EXAM DESCRIPTION: ACUTE ABDOMEN SERIES COMPLETED DATE/TIME: 08/25/2019 12:45 pm REASON FOR STUDY: abd pain, cough, n/v/d COMPARISON: 01/08/2019 NUMBER OF VIEWS: Three views. TECHNIQUE: Frontal chest, supine abdomen and upright/decubitus abdomen radiographic images acquired. LIMITATIONS: None. FINDINGS: CHEST: Lungs clear of infiltrates. FREE AIR: None. No abnormal gas collections. BOWEL GAS PATTERN: Nonobstructive pattern. No dilated loops or air fluid levels. CALCIFICATIONS: No suspicious calcifications. HARDWARE: None in the abdomen. SOFT TISSUES: No gross mass or suggestion of organomegaly. BONES: No acute fracture. No worrisome bone lesions. OTHER: No other significant finding. IMPRESSION: NO RADIOGRAPHIC EVIDENCE FOR ACUTE ABDOMINAL DISEASE. TECHNICAL DOCUMENTATION: JOB ID: [id number] [employer]- All Rights Reserved Reading location - IP/workstation name: [email or web address]
--- NOTE | 2019-08-25 16:54 | ER Document Report ---
ED General - General Chief Complaint: Vomiting Stated Complaint: VOMITING Time Seen by Provider: 08/25/19 11:50 Primary Care Provider: KSENIA ANDERSON MD [Primary Care Provider] - Follow up as needed TRAVEL OUTSIDE OF THE [place] IN LAST 30 DAYS: No - Related Data Allergies/Adverse Reactions: ciprofloxacin Allergy (Verified 08/25/19 19:59) Past Medical History - General Information source: Patient, Relative - Social History Smoking Status: Former Smoker Family History: Hypertension - Past Medical History Cardiac Medical History: Reports: Hx Hypertension Renal/ Medical History: Denies: Hx Peritoneal Dialysis Past Surgical History: Reports: Other - ypper palate surgery for Ca about 30 years ago Physical Exam - Vital signs Vitals: Temp Pulse Resp BP Pulse Ox 98.6 F 99 18 116/95 H 97 08/25/19 11:33 08/25/19 11:33 08/25/19 11:33 08/25/19 11:33 08/25/19 11:33 - Notes Notes: Patient presents emerge department with multiple complaints. History is confusing as patient cannot give a good history and family members have conflicting histories. #1 is abdominal pain. Is located in epigastric area. Pain is been going on for a long time. Seen by his family doctor and family says nothing was done for it. He does have a history of reflux but says this is different. Family reports that they have given him Makenzie-Carlisle 1-2 times a day. They report these had intermittent nausea and vomiting with eating for months but now is having constantly not able to keep anything down. They report diarrhea. He says it is hard and firm and other times is just loose watery with no recent blood. He said no fevers associated with this or urinary symptoms #2 is a cough. This been going on for several months. Diagnosed with pneumonia in July and treated with Zithromax. Family doctor said he need to follow-up. He still has a nonproductive cough and some mild intermittent shortness of breath not related to activity. Seems seem to get better with his inhaler #3 his left side chest pain is been going on for the past 2 days is constant in nature. Denies any trauma or falls and hurts when he takes a deep breath and when he coughs. Occasionally radiates around to the back. Past medical history is never hypertension or diabetes or coronary artery disease. Family denies history of abdominal aneurysm says he has an abnormal aortic valve per cardiology Surgical history: Cystectomy Social history does not smoke or drink at all Review of systems pertinent positives and negatives in HPI otherwise all the systems were reviewed and acutely negative PHYSICIAN EXAM -vital signs are noted triage note and note from triage reviewed GENERAL: Well-appearing, well-nourished and in _no acute distress HEAD: Atraumatic, normocephalic. EYES: Pupils equal round and reactive to light, extraocular movements intact, sclera anicteric, conjunctiva are normal. ENT: nares patent, oropharynx clear without exudates. The slightly dry mucous membranes. NECK: supple without lymphadenopathy LUNGS: Breath sounds clear to auscultation bilaterally and equal. No wheezes rales or rhonchi. No chest wall tenderness or respiratory distress HEART: Regular rate and rhythm without murmurs ABDOMEN: Soft, he is got some minimal tenderness epigastric right upper quadrant and right middle quadrant. There is no pain in the right lower quadrant or localizing pain over McBurney's. Do not appreciate a pulsatile masses. Has good femoral pulses and no radial femoral delay EXTREMITIES: No deformity, no edema. NEUROLOGICAL: No focal neurological deficits. Moves all extremities spontaneously and on command. Strength is 5/5 in the upper lower extremities there is no pain with straight leg raise PSYCH: Normal mood, normal affect. SKIN: Warm, Dry, normal turgor, no rashes or lesions note BACK-nontender in the midline no pain with sitting no CVA tenderness Rectal there is no masses minimum stool is brown and heme-negative Differential diagnosis dehydration constipation viral syndrome abnormal electrolytes pleurisy PE pneumonia Course - Re-evaluation Re-evalutation: 08/25/19 22:28 ED patient remained stable cultures were obtained he was started on broad- spectrum antibiotics. He actually requested a food tray which is tolerated well Consulted discussed case with general surgery who felt this may be consistent with a retained stone and we will have GI felt patient should be transferred. I have counseled the transfer center environment and patient has been accepted Decision making patient presents with intermittent abdominal pain and vomiting with elevated LFTs recent gallbladder removal. Concern at this point is changed stone will need to be seen by GI and transfer to a another facility - Vital Signs Vital signs: Temp Pulse Resp BP Pulse Ox 98.4 F 91 18 129/87 H 100 08/25/19 20:26 08/25/19 20:26 08/25/19 20:26 08/25/19 20:26 08/25/19 20:26 - Laboratory Result Diagrams: 08/25/19 12:23 08/25/19 12:23 Laboratory results interpreted by me: 08/25/19 08/25/19 08/25/19 12:23 12:23 17:16 Lymph % (Auto) 6.6 L Seg Neutrophils % 86.8 H Creatinine 1.47 H Est GFR ( Amer) 55 L Est GFR (MDRD) Non-Af 45 L Total Bilirubin 1.5 H AST 542 H Alkaline Phosphatase 281 H Urine Urobilinogen 4.0 H Ur Leukocyte Esterase TRACE H 08/25/19 22:24 T's were noted and the LFTs were noted. These were all normal and March when he had his gallbladder removed - Diagnostic Test Radiology reviewed: Reports reviewed Critical Care Note - Critical Care Note Total time excluding time spent on procedures (mins): 35 Comments: Patient presents with pleuritic left-sided chest pain. Recently treated for pneumonia concerns at that time of PE versus recurrent pneumonia. Also intermittent abdominal pain with elevated LFTs for possible retained stone. He said serial exams multiple interventions and consultations additional history obtained from old chart and family Discharge - Discharge Clinical Impression: Elevated LFTs Hypertension Qualifiers: Hypertension type: essential hypertension Qualified Code(s): I10 - Essential (primary) hypertension Abdominal pain Qualifiers: Abdominal location: epigastric Qualified Code(s): R10.13 - Epigastric pain Pneumonia Qualifiers: Pneumonia type: due to unspecified organism Disposition: [facility] Referrals: KSENIA ANDERSON MD [Primary Care Provider] - Follow up as needed
[2019-08-25] MEDS ORDERED: NORMAL SALINE 1000 ML 1,000 ML IV ONE ×2 (17:02→21:20)
[2019-08-25 17:39] LABS: APPEARANCE,URINE CLEAR; BILIRUBIN,URINE NEGATIVE (NEGATIVE); COLOR,URINE YELLOW; GLUCOSE, URINE NEGATIVE (NEGATIVE); KETONES,URINE NEGATIVE (NEGATIVE); LEUKOCYTE ESTERASE,URINE TRACE (NEGATIVE); NITRITE,URINE NEGATIVE (NEGATIVE); PROTEIN,URINE NEGATIVE (NEGATIVE); URINE SPECIFIC GRAVITY 1.014
--- NOTE | 2019-08-25 18:29 | RADIOLOGY REPORT (SQ) ---
EXAM DESCRIPTION: CTA CHEST COMPLETED DATE/TIME: 08/25/2019 6:14 pm REASON FOR STUDY: cp COMPARISON: None. TECHNIQUE: CT scan of the chest performed using helical scanning technique with dynamic intravenous contrast injection. Images reviewed with lung, soft tissue and bone windows. Reconstructed coronal and sagittal MPR images reviewed. Additional 3 dimensional post-processing performed to develop Maximal Intensity Projection images (VA P). All images stored on PACS. All CT scanners at this facility use dose modulation, iterative reconstruction, and/or weight based d osing when appropriate to reduce radiation dose to as low as reasonably achievable (ALARA). [facility]: Dose Right [facility]: CareDose [facility]: Dose Right [facility]: Teradose 4D [facility]: [employer] CONTRAST TYPE AND DOSE: 83 mL Omnipaque 350- low osmolar. Contrast bolus adequate for pulmonary arteries and aorta. RENAL FUNCTION: BUN 18 creatinine 1.47 RADIATION DOSE: CT Rad equipment meets quality standard of care and radiation dose reduction techniq ues were employed. CTDIvol: NaN - NaN mGy. DLP: 0 mGy-cm. . LIMITATIONS: None. FINDINGS: LUNGS AND PLEURA: Unusual peripheral bulla versus loculated pneumothorax anteriorly on the left. Patchy opacification in the lingula. AORTA AND GREAT VESSELS: No aneurysm. No dissection. HEART: No pericardial effusion. No significant coronary artery calcifications. PULMONARY ARTERIES: No emboli visualized in the main pulmonary arteries or the segmental branches. HILAR AND MEDIASTINAL STRUCTURES: No identified masses or abnormal nodes. HARDWARE: None in the chest. UPPER ABDOMEN: See separate report of the CT of the abdomen. THYROID AND OTHER SOFT TISSUES: No masses. No adenopathy. BONES: No acute or significant finding. 3D MIPS: Confirm above findings. OTHER: No other significant finding. IMPRESSION: 1. There is no pulmonary embolus. There is no aortic aneurysm or dissection. 2. Unusual peripheral bulla on the left versus a loculated pneumothorax. 3. Cannot exclude limited lingular pneumonia. COMMENT: Quality ID # 436: Final reports with documentation of one or more dose reduction techniques (e.g., Automated exposure control, adjustment of the mA and/or kV according to patient size, use of iterative reconstruction technique) TECHNICAL DOCUMENTATION: JOB ID: [id number] [employer]- All Rights Reserved Reading location - IP/workstation name: [email or web address]
--- NOTE | 2019-08-25 18:40 | RADIOLOGY REPORT (SQ) ---
EXAM DESCRIPTION: CT ABD/PELVIS WITH IV ONLY COMPLETED DATE/TIME: 08/25/2019 6:14 pm REASON FOR STUDY: Abdominal pain COMPARISON: None. TECHNIQUE: CT scan of the abdomen and pelvis performed using helical scanning technique with dynamic intravenous contrast injection. No oral contrast. Images reviewed with lung, soft tissue, and bone windows. Reconstructed coronal and sagittal MPR images reviewed. Delayed images for evaluation of the urinary system also acquired. All images stored on PACS. All CT scanners at this facility use dose modulation, iterative reconstruction, and/or weight based d osing when appropriate to reduce radiation dose to as low as reasonably achievable (ALARA). [facility]: Dose Right [facility]: CareDose [facility]: Dose Right [facility]: Teradose 4D [facility]: [employer] CONTRAST TYPE AND DOSE: contrast/concentration: Isovue 350.00 mg/ml; Total Contrast Delivered: 83.0 ml; Total Saline Delivered: 32.6 ml RENAL FUNCTION: BUN 18 creatinine 1.47 RADIATION DOSE: . LIMITATIONS: None. FINDINGS: LOWER CHEST: No significant findings. No nodules or infiltrates. LIVER: Normal size. No masses. No dilated ducts. SPLEEN: Normal size. No focal lesions. PANCREAS: No masses. No significant calcifications. No adjacent inflammation or peripancreatic fluid collections. Pancreatic duct not dilated. GALLBLADDER: Surgically absent. ADRENAL GLANDS: No significant masses or asymmetry. RIGHT KIDNEY AND URETER: No solid masses. No significant calcifications. No hydronephrosis or hyd roureter. LEFT KIDNEY AND URETER: No solid masses. Several cysts are present. No significant calcifications. No hydronephrosis or hydroureter. 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 RETROPERITONEUM: No retroperitoneal adenopathy, hemorrhage or masses. BOWEL AND PERITONEAL CAVITY: Descending and sigmoid diverticulosis with no associated acute inflammat ion. No obvious bowel mass. APPENDIX: Normal. PELVIS: No mass. No free fluid. Normal bladder. ABDOMINAL WALL: No masses. No hernias. BONES: No significant or acute findings. OTHER: No other significant finding. IMPRESSION: No acute finding in the abdomen or pelvis. Several left renal cysts are present. There is diverticulosis coli. 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 COMMENT: AAA Size: Follow-up Recommendation 3.0-3.4 cm Every 3 years *Based upon the Society for Vascular Surgery Guidelines: J Vasc Surg. 2009 May;50(4 Suppl):S2-49 *For aortas of maximum diameter of 2.6-2.9 cm meeting the criteria for AAA (?1.5 x proximal normal se gment) TECHNICAL DOCUMENTATION: JOB ID: [id number] Quality ID # [id number]: Final reports with documentation of one or more dose reduction techniques (e.g., Au tomated exposure control, adjustment of the mA and/or kV according to patient size, use of iterative reconstruction technique) 2010 [employer]- All Rights Reserved Reading location - IP/workstation name: [email or web address]
[2019-08-25] MEDS ORDERED: CEFTRIAXONE INJ 1000 MG VIAL IV ONE (21:05)
[2019-08-25] MEDS ORDERED: AZITHROMYCIN INJ 500 MG VIAL IV ONE (21:06)
[2019-08-25] MEDS ORDERED: NORMAL SALINE 500 ML IV ONE (21:20)
--- NOTE | 2019-08-25 22:01 | EKG REPORT ---
SEVERITY:- ABNORMAL ECG - SINUS RHYTHM INCOMPLETE LEFT BUNDLE BRANCH BLOCK PROBABLE LEFT VENTRICULAR HYPERTROPHY : Confirmed by: Yevgeniy Vega 25-Aug-2019 22:00:55
[2019-08-26] MEDS ORDERED: PANTOPRAZOLE SODIUM 40 MG TABLET.DR PO SCH (11:45)
[2019-08-26] MEDS ORDERED: SIMVASTATIN 10 MG TABLET PO SCH (11:45)
[2019-08-26] MEDS ORDERED: HYDROCHLOROTHIAZIDE 12.5 MG TABLET PO SCH (11:50)
[2019-08-26] MEDS ORDERED: LISINOPRIL 10 MG TABLET PO SCH (11:50)
[2019-08-26 15:49] VITALS: BP 158/84
[2019-08-26] MEDS ORDERED: DEXTROSE 5%-LACTATED RINGERS 1,000 ML IV ONE (16:04)
--- NOTE | 2019-08-26 16:08 | ER Document Report ---
Doctor's Note Notes: 08/26/19 16:05 The patient is resting comfortably with normal vital signs. [facility] called to report that they now have a bed assignment for the patient. Transport will be here in the next 30 minutes or less. I did discuss this at length with the patient and his spouse. We were going to do an MRCP if the patient was not going to get a bed today, but he had recently eaten lunch so it was going to be 6 hours before we were able to do that test.
== END 2019-08-26 16:35 | disposition short-term general hospital (02) ==
LOC: ER 11:13
DX: R94.5 Abnormal results of liver function studies (principal); I10 Essential (primary) hypertension; R10.13 Epigastric pain; R05 Cough; R10.84 Generalized abdominal pain; R11.10 Vomiting, unspecified; R19.7 Diarrhea, unspecified; R42 Dizziness and giddiness; Z88.3 Allergy status to other anti-infective agents
CPT/HCPCS: 93005; 99291; 96361; 96365; 96367; 36415; 87040; 83690; 85025; 87077; 80053; 81001; 84484; 87186; 87150 ×26; 74022; 71275; 74177; 93010; A9270 ×4; J0696; J7121; J7030; J7040; J0456; J3490

== ENCOUNTER → 2019-11-07 | Outpatient (CLI) | payer MEDICARE ==
[2019-11-07 15:37] LABS: A TYPE INFLUENZA AG NEGATIVE (NEGATIVE); B INFLUENZA AG NEGATIVE (NEGATIVE)
== END ==
LOC: RDC 14:07
PROVIDERS: ATTEND Registered Nurse
DX: Z20.828 Contact with and (suspected) exposure to other viral communicable diseases (principal)
CPT/HCPCS: 36415; 87070; 87635; 87804; 87880